=== PATIENT | female | born 1960 ===

== ENCOUNTER 2021-12-14 17:23 | Emergency (ER) | payer MEDICAID, OTHER ==
[~2021-12-14] VITALS: Ht 162.6 cm; Wt 81.0 kg
[2021-12-14 18:43] VITALS: BP 147/92
== END 2021-12-14 19:59 | disposition home or self-care (01) ==
LOC: ER 17:23
DX: F41.9 Anxiety disorder, unspecified (principal); F31.9 Bipolar disorder, unspecified